=== PATIENT | male | born 1955 | race Caucasian/White ===

== ENCOUNTER 2023-08-25 08:46 | Emergency (ER) | payer BC, OTHER ==
[~2023-08-25] VITALS: Ht 177.8 cm; Wt 95.3 kg
[~2023-08-25 08:46] MED LIST: CLON1TAB12 PO; LEVO100T PO
[2023-08-25 08:58] VITALS: BP_SYST 142; PULSE 117; RESP 18; TEMP 100; O2SAT 96
[2023-08-25 09:13] LABS: BILIRUBIN,URINE NEGATIVE (NEGATIVE); BLOOD, URINE 2+ (NEGATIVE); CLARITY/URINE CLEAR (CLEAR); COLOR,URINE YELLOW (YELLOW); GLUCOSE,URINE NEGATIVE (NEGATIVE); KETONES,URINE NEGATIVE (NEGATIVE); LEUKOCYTE ESTERASE ,URINE NEGATIVE (NEGATIVE); NITRITE, URINE NEGATIVE (NEGATIVE); PROTEIN URINE NEGATIVE (NEGATIVE); UROBILINOGEN,URINE 0.2 (0.2-1.0)
[2023-08-25 09:20] LABS: BACTERIA,URINE None Seen /HPF (None Seen); MUCUS,URINE 1+ /LPF (None Seen); WBC,URINE 0-3 /HPF (0-3)
[2023-08-25 09:28] LABS: BASOPHILS % (AUTO) 0.3 % (0.0-2.0); EOSINOPHILS # (AUTO) 0.1 K/uL (0.0-0.4); EOSINOPHILS % (AUTO) 1.9 % (0.0-4.0); HEMATOCRIT 48.2 % (36-54); HEMOGLOBIN 16.5 g/dL (14.0-18.0); LYMPHOCYTES # (AUTO) 0.3 K/uL (1.0-5.5); LYMPHOCYTES % (AUTO) 6.1 % (20.5-51.5); MEAN CORPUSCULAR HEMOGLOBIN 31 pg (27-31); MEAN CORPUSCULAR HGB CONC 34 % (32-36); MEAN CORPUSCULAR VOLUME 91 fL (79.0-98.0); MONOCYTES # (AUTO) 0.3 K/uL (0.0-1.0); NEUTROPHILS # (AUTO) 3.6 K/uL (1.8-7.7); NEUTROPHILS % (AUTO) 83.7 % (40.0-70.0); PLATELET COUNT (AUTO) 147 K/uL (130-430); RED BLOOD CELL COUNT(AUTO) 5.29 MIL/uL (4.2-6.2); RED CELL DISTRIBUTION WIDTH 13.7 % (9.0-15.0); WHITE BLOOD COUNT (AUTO) 4.3 K/uL (4.8-10.8)
[2023-08-25 09:36] LABS: ANION GAP 9 (5-15); CALCIUM 8.6 mg/dL (8.4-11.0); CARBON DIOXIDE 24 mmol/L (23-29); CHLORIDE 103 mmol/L (98-107); CREATININE 1.38 mg/dL (0.55-1.30); GFR AFRICAN AMERICAN 67 mL/min (>90); GLUCOSE 134 mg/dL (74-106); POTASSIUM 4.1 mmol/L (3.5-5.1); SODIUM SERUM 136 mmol/L (136-145); UREA NITROGEN, BLOOD 11 mg/dL (8-21)
[2023-08-25 09:41] LABS: GFR NON AFRICAN-AMERICAN 55 mL/min (>90)
[2023-08-25 09:42] LABS: ALANINE AMINOTRANSFERASE 56 U/L (12-78); ALBUMIN 3.6 g/dL (3.4-4.8); ASPARTATE AMINOTRANSFERASE 40 U/L (10-37); BILIRUBIN,DIRECT 0.1 mg/dL (0.0-0.3); TOTAL BILIRUBIN 0.3 mg/dL (0.0-1.0)
[2023-08-25 10:04] LABS: INFLUENZA TYPE A Negative (NEGATIVE); INFLUENZA TYPE B NEGATIVE (NEGATIVE)
[2023-08-25 10:36] VITALS: BP_SYST 142; PULSE 117; RESP 18; TEMP 100; O2SAT 96
== END 2023-08-25 10:30 | disposition home or self-care (01) ==
LOC: SED 08:46
DX: R10.32 Left lower quadrant pain (principal); R50.9 Fever, unspecified; Z79.899 Other long term (current) drug therapy; Z20.822 Contact with and (suspected) exposure to COVID-19
CPT/HCPCS: 36415; 71045; 80048; 80076; 81000; 81001; 81015; 83605; 84484; 85025; 87040; 87086; 93005; 99285

== ENCOUNTER 2024-03-09 08:51 | Inpatient (IN) | payer OTHER ==
[~2024-03-09] VITALS: Ht 177.8 cm; Wt 93.0 kg
[2024-03-09 09:07] VITALS: BP_SYST 135; PULSE 104; RESP 18; TEMP 97.7; O2SAT 94
[2024-03-09 09:52] LABS: BASOPHILS % (AUTO) 0.2 % (0.0-2.0); EOSINOPHILS % (AUTO) 0.4 % (0.0-4.0); HEMATOCRIT 46.1 % (36-54); HEMOGLOBIN 15.8 g/dL (14.0-18.0); LYMPHOCYTES # (AUTO) 1.5 K/uL (1.0-5.5); LYMPHOCYTES % (AUTO) 12.4 % (20.5-51.5); MEAN CORPUSCULAR HEMOGLOBIN 31 pg (27-31); MEAN CORPUSCULAR HGB CONC 34 % (32-36); MEAN CORPUSCULAR VOLUME 89 fL (79.0-98.0); MONOCYTES % (AUTO) 8.4 % (1.7-9.3); NEUTROPHILS # (AUTO) 9.3 K/uL (1.8-7.7); NEUTROPHILS % (AUTO) 78.6 % (40.0-70.0); PLATELET COUNT (AUTO) 208 K/uL (130-430); RED BLOOD CELL COUNT(AUTO) 5.16 MIL/uL (4.2-6.2); RED CELL DISTRIBUTION WIDTH 13.4 % (9.0-15.0); WHITE BLOOD COUNT (AUTO) 11.8 K/uL (4.8-10.8)
[2024-03-09] MEDS: MORPHINE 4 MG INJ. 4 MG/ML VIAL IVP ONE (10:11)
[2024-03-09] MEDS: ONDANSETRON HCL 4 MG/2 ML VIAL IVP ONE (10:12)
[2024-03-09 10:18] LABS: ALBUMIN 3.9 g/dL (3.4-4.8); BILIRUBIN,DIRECT 0.2 mg/dL (0.0-0.3); CREATININE 1.08 mg/dL (0.55-1.30); TOTAL BILIRUBIN 0.7 mg/dL (0.0-1.0)
[2024-03-09] MEDS ORDERED: LEVO100T9 PO (10:21)
[2024-03-09] MEDS ORDERED: SIMV-46 PO (10:21)
[2024-03-09] MEDS ORDERED: ASPI-1155 PO (10:21)
[2024-03-09] MEDS ORDERED: METF-379 PO (10:21)
[2024-03-09] MEDS ORDERED: TAMS0.4C96 PO (10:21)
[2024-03-09 10:49] LABS: BILIRUBIN,URINE NEGATIVE (NEGATIVE); BLOOD, URINE TRACE (NEGATIVE); CLARITY/URINE CLEAR (CLEAR); COLOR,URINE YELLOW (YELLOW); GLUCOSE,URINE NEGATIVE (NEGATIVE); KETONES,URINE NEGATIVE (NEGATIVE); LEUKOCYTE ESTERASE ,URINE NEGATIVE (NEGATIVE); NITRITE, URINE NEGATIVE (NEGATIVE); PROTEIN URINE NEGATIVE (NEGATIVE); UROBILINOGEN,URINE 0.2 (0.2-1.0)
[2024-03-09 11:08] LABS: BACTERIA,URINE RARE /HPF (None Seen); MUCUS,URINE 1+ /LPF (None Seen); RBC,URINE 0-3 /HPF (0-3); WBC,URINE 0-3 /HPF (0-3)
[2024-03-09] MEDS ORDERED: PIPERACILLIN/TAZOBACTAM 3.375 GM/VIAL (ZOSYN) IV ONE (12:43)
[2024-03-09] MEDS ORDERED: PIPERACILLIN/TAZO 3.375 GM in D5W 50 ML IV SCH (13:00)
[2024-03-09] MEDS: PANTOPRAZOLE SODIUM 40 MG/VIAL (PROTONIX) IVP ONE (13:08)
[2024-03-09] MEDS: PIPERACILLIN/TAZO 3.375 GM in NS 50 ML IV ONE (13:08)
[2024-03-09] MEDS: KCL 20 mEq in 0.45% NS 1000 mL 1,000 ML IV ONE (14:18)
[2024-03-09 15:00] VITALS: BP_SYST 116; PULSE 78; RESP 18; TEMP 98.9; O2SAT 95
[2024-03-09 15:19] VITALS: BP_SYST 116; PULSE 78; RESP 18; TEMP 98.9; O2SAT 95
[2024-03-09 20:00] VITALS: BP_SYST 118; PULSE 68; RESP 16; TEMP 98; O2SAT 94; O2SAT 98
[2024-03-09] MEDS: clonazePAM 0.5 MG TABLET PO SCH (20:52)
[2024-03-09] MEDS: SIMVASTATIN 40 MG TABLET PO SCH (20:52)
[2024-03-09] MEDS: PIPERACILLIN/TAZO 3.375/DEX-IS 50 ML IV SCH (20:53)
[2024-03-10] VITALS: BP_SYST 100; RESP 16; TEMP 98.4; O2SAT 94
[2024-03-10] MEDS: LEVOTHYROXINE SODIUM 0.1 MG TABLET PO SCH (06:52)
[2024-03-10 08:00] VITALS: BP_SYST 125; PULSE 76; RESP 16; TEMP 98.1; O2SAT 96
[2024-03-10 08:45] LABS: BASOPHILS % (AUTO) 0.6 % (0.0-2.0); EOSINOPHILS # (AUTO) 0.1 K/uL (0.0-0.4); EOSINOPHILS % (AUTO) 1.9 % (0.0-4.0); HEMATOCRIT 46.8 % (36-54); HEMOGLOBIN 15.6 g/dL (14.0-18.0); LYMPHOCYTES # (AUTO) 1.6 K/uL (1.0-5.5); MEAN CORPUSCULAR HEMOGLOBIN 31 pg (27-31); MEAN CORPUSCULAR HGB CONC 33 % (32-36); MEAN CORPUSCULAR VOLUME 92 fL (79.0-98.0); MONOCYTES # (AUTO) 0.4 K/uL (0.0-1.0); MONOCYTES % (AUTO) 5.1 % (1.7-9.3); NEUTROPHILS # (AUTO) 5.7 K/uL (1.8-7.7); NEUTROPHILS % (AUTO) 72.4 % (40.0-70.0); PLATELET COUNT (AUTO) 201 K/uL (130-430); RED BLOOD CELL COUNT(AUTO) 5.11 MIL/uL (4.2-6.2); RED CELL DISTRIBUTION WIDTH 13.3 % (9.0-15.0); WHITE BLOOD COUNT (AUTO) 7.8 K/uL (4.8-10.8)
[2024-03-10 08:53] LABS: CALCIUM 9.4 mg/dL (8.4-11.0); CREATININE 1.15 mg/dL (0.55-1.30); POTASSIUM 4.3 mmol/L (3.5-5.1)
[2024-03-10] MEDS: ASPIRIN 81 MG TAB.CHEW PO SCH (09:00)
[2024-03-10] MEDS ORDERED: LEVOTHYROXINE SODIUM 0.1 MG TABLET PO SCH (09:00)
[2024-03-10] MEDS: metFORMIN HCL 500 MG TABLET PO SCH (09:14)
[2024-03-10] MEDS: TAMSULOSIN HCL 0.4 MG CAP PO SCH (09:14)
[2024-03-10] MEDS: PANTOPRAZOLE SODIUM 40 MG/VIAL (PROTONIX) IVP SCH (09:15)
[2024-03-10 11:03] VITALS: BP_SYST 116; PULSE 83; RESP 14; TEMP 98.6; O2SAT 96
[2024-03-10 16:18] VITALS: BP_SYST 116; PULSE 80; RESP 14; TEMP 98.6; O2SAT 96
[2024-03-10 20:00] VITALS: BP_SYST 119; PULSE 70; RESP 18; TEMP 97.8; O2SAT 96
[2024-03-11 00:08] VITALS: BP_SYST 110; PULSE 60; RESP 18; TEMP 97.6
[2024-03-11 08:00] VITALS: BP_SYST 115; PULSE 65; RESP 16; TEMP 97.5
[2024-03-11 10:11] VITALS: BP_SYST 115; PULSE 65; RESP 16; TEMP 97.5; O2SAT 94
[2024-03-11] MEDS ORDERED: METR-154 PO (15:27)
[2024-03-11] MEDS ORDERED: CIPR500T5 PO (15:27)
== END 2024-03-11 16:45 | disposition home or self-care (01) | DRG 394 ==
LOC: SED 08:51 → SMU 12:54
PROVIDERS: ADMIT Specialist; ATTEND Specialist
DX: K64.8 Other hemorrhoids (principal); K57.32 Diverticulitis of large intestine without perforation or abscess without bleeding; E11.9 Type 2 diabetes mellitus without complications; D72.829 Elevated white blood cell count, unspecified; I25.10 Atherosclerotic heart disease of native coronary artery without angina pectoris; E78.5 Hyperlipidemia, unspecified; I10 Essential (primary) hypertension; Z79.899 Other long term (current) drug therapy; Z88.8 Allergy status to other drugs, medicaments and biological substances; Z88.0 Allergy status to penicillin
CPT/HCPCS: 36415; 80048; 80076; 81000; 81001; 81015; 82272; 83690; 85025; 99285; J2270; J2405; J2470; J2543; J3480